=== PATIENT | male | born 1980 | race Caucasian/White ===

== ENCOUNTER 2024-08-26 16:36 | Inpatient (IN) | payer OTHER ==
[~2024-08-26] VITALS: Ht 182.8 cm; Wt 128.4 kg
[~2024-08-26 16:36] MED LIST: ATARAX,VISTARIL50 MG PO; LISINOPRIL10 M1 PO; LOPRESSOR100 M1 PO; SINEQUAN PO; VITAMIN D50000 I3 PO
[2024-08-26 18:25] LABS: BILIRUBIN Negative (Negative); BLOOD Negative (Negative); CLARITY Clear (Clear); COLOR Yellow (Yellow); GLUCOSE Negative (Negative); KETONE Trace (Negative); LEUKO ESTERASE Negative (Negative); NITRITE Negative (Negative); PH 5.5 (4.5-8.0); SPECIFIC GRAVITY 1.025 (1.001-1.030)
[2024-08-26 18:31] LABS: BACTERIA 1+; MUCOUS 3+
[2024-08-26 19:34] LABS: BASO % 0.3 % (0.0-1.0); EOS # 0.2 10*3/uL (0.0-0.4); HEMATOCRIT 47.9 % (42.0-52.0); MEAN CELL VOLUME 88.9 fl (80.0-94.0); MEAN CORPUSCULAR HGB 28.9 pg (27.0-31.0); MEAN CORPUSCULAR HGB CONC 32.6 g/dl (33.0-37.0); MEAN PLATELET VOLUME 10.8 fl (9.6-12.3); MONO # 0.7 10*3/uL (0.1-1.0); MONO % 8.2 % (3.0-9.0); NEUT # 5.4 10*3/uL (2.3-7.9); NEUT % 61.2 % (47.0-73.0); PLATELET COUNT AUTOMATED 219 10*3/uL (130-400); RED BLOOD COUNT 5.39 10*6/uL (4.50-5.90); RED CELL DISTRI WIDTH 12.9 % (0-14.5); WHITE BLOOD COUNT 8.8 10*3/uL (4.8-10.8)
[2024-08-26 19:55] LABS: BUN 15 mg/dl (9-23); CHLORIDE 104 mmol/L (98-107); POTASSIUM 4.7 mmol/L (3.4-5.1)
[2024-08-26] MEDS ORDERED: diazePAM 5 MG TAB PO ONE (21:00)
[2024-08-26 21:05] LABS: URINE AMPHETAMINES Negative (1000ng/ml); URINE BARBITURATES Negative (200ng/ml); URINE BENZODIAZEPINES Positive (200ng/ml); URINE CANNABINOIDS (THC) Positive (50ng/ml); URINE COCAINE Positive (300ng/ml); URINE METHADONE Negative (300ng/ml); URINE OPIATES Negative (300ng/ml); URINE PHENCYCLIDINE Negative (25ng/ml)
[2024-08-26] MEDS ORDERED: MG-AL HYDROXIDE/SIMETICONE 30 ML UDC PO PRN (21:25)
[2024-08-26] MEDS ORDERED: Dicyclomine Hydrochloride 20 MG TAB PO PRN (21:25)
[2024-08-26] MEDS ORDERED: BISACODYL 10 MG SUPP R PRN (21:25)
[2024-08-26] MEDS ORDERED: Sennosides A and B 8.6 MG TAB PO PRN (21:25)
[2024-08-26] MEDS ORDERED: ACETAMINOPHEN 325 MG TAB PO PRN (21:25)
[2024-08-26] MEDS ORDERED: hydrOXYzine 50 MG CAP PO PRN (21:25)
[2024-08-26] MEDS ORDERED: Ondansetron Hydrochloride 4 MG TAB PO PRN (21:25)
[2024-08-26] MEDS ORDERED: Ondansetron Hydrochloride 4 MG/2 ML VIAL IV PRN (21:25)
[2024-08-26] MEDS ORDERED: IBUPROFEN 600 MG TAB PO PRN (21:25)
[2024-08-26] MEDS ORDERED: Magnesium Hydroxide 30 ML UDC PO PRN (21:25)
[2024-08-26] MEDS ORDERED: METHOCARBAMOL 750 MG TAB PO PRN (21:25)
[2024-08-26] MEDS ORDERED: ACETAMINOPHEN 650 MG SUPP R PRN (21:25)
[2024-08-26] MEDS ORDERED: Loperamide Hydrochloride 2 MG CAP PO PRN (21:25)
[2024-08-26] MEDS ORDERED: SUBOXONE 8 MG-1 EACH BC (21:57)
[2024-08-26 21:59] VITALS: BP 113/85
[2024-08-26] MEDS ORDERED: traZODone Hydrochloride 50 MG TAB PO PRN (22:00)
[2024-08-27] VITALS (7 sets, daily range): BP systolic 118–165; BP diastolic 69–102
[2024-08-27] MEDS ORDERED: LORazepam 1 MG TAB PO SCH
[2024-08-27 06:53] LABS: ALKALINE PHOSPHATASE 69 U/L (46-116); BUN 16 mg/dl (9-23); CHLORIDE 102 mmol/L (98-107); CPK 149 U/L (34-171); FREE T4 1.37 ng/dl (0.89-1.76); POTASSIUM 4.4 mmol/L (3.4-5.1); SGPT/ALT 14 U/L (5-49)
[2024-08-27] MEDS ORDERED: MULTIVITAMIN 1 TAB TAB PO SCH (10:00)
[2024-08-27] MEDS ORDERED: Thiamine 100 MG TAB PO SCH (10:00)
[2024-08-27] MEDS ORDERED: Enoxaparin Sodium 40 MG/0.4 ML SYR SC SCH (10:00)
[2024-08-27] MEDS ORDERED: FOLIC ACID 1 MG TAB PO SCH (10:00)
[2024-08-27] MEDS ORDERED: Nicotine 21 MG PATCH T SCH (10:08)
[2024-08-27] MEDS ORDERED: Buprenorphine Hydrochloride 2 MG TAB SL SCH (12:00)
[2024-08-27] MEDS ORDERED: Doxepin Hydrochloride 10 MG/ML OZ PO SCH ×2 (22:00)
[2024-08-27] MEDS ORDERED: Melatonin 5 MG TABLET PO PRN (22:05)
[2024-08-28] VITALS: BP 116/65
[2024-08-28] MEDS ORDERED: LORazepam 1 MG TAB PO PRN
[2024-08-28] MEDS ORDERED: LORazepam 1 MG TAB PO SCH (02:00)
[2024-08-28] MEDS ORDERED: diazePAM 5 MG TAB PO ONE ×3 (02:10→23:45)
[2024-08-28 08:00] VITALS: BP 119/82
[2024-08-28] MEDS ORDERED: AQUAPHOR OINTMENT Base 50 GM TUBE T PRN (10:55)
[2024-08-28 12:00] VITALS: BP 115/64
[2024-08-28] MEDS ORDERED: Buprenorphine Hydrochloride 2 MG TAB SL SCH (12:00)
[2024-08-28 16:00] VITALS: BP 137/82
[2024-08-28 20:00] VITALS: BP 139/63
[2024-08-28] MEDS ORDERED: GABAPENTIN800 MG PO (23:06)
[2024-08-28] MEDS ORDERED: GABAPENTIN 800 MG TAB PO SCH (23:40)
[2024-08-29] VITALS: BP 140/82
[2024-08-29 08:00] VITALS: BP 150/91
[2024-08-29] MEDS ORDERED: GABAPENTIN 800 MG TAB PO SCH (10:00)
[2024-08-29] MEDS ORDERED: Buprenorphine Hydrochloride 2 MG TAB SL SCH (16:00)
== END 2024-08-29 11:09 | disposition home or self-care (01) | DRG 773 ==
LOC: ED 16:36 → EDHOLD 21:14 → 4E 21:14
PROVIDERS: Nurse Practitioner Family; Student in an Organized Health Care Education/Training Program; ADMIT Internal Medicine; ATTEND Internal Medicine
DX: F13.130 Sedative, hypnotic or anxiolytic abuse with withdrawal, uncomplicated (principal); F41.9 Anxiety disorder, unspecified; F11.10 Opioid abuse, uncomplicated; R82.71 Bacteriuria; I10 Essential (primary) hypertension; Z20.822 Contact with and (suspected) exposure to COVID-19; F32.9 Major depressive disorder, single episode, unspecified; F12.90 Cannabis use, unspecified, uncomplicated; F17.210 Nicotine dependence, cigarettes, uncomplicated; F14.13 Cocaine abuse, unspecified with withdrawal; Z71.6 Tobacco abuse counseling; Z80.41 Family history of malignant neoplasm of ovary